=== PATIENT | female | born 1990 | race Caucasian/White ===

== ENCOUNTER → 2016-10-10 | Outpatient (REF) ==
[~2016-10-10] MED LIST: YAZ 28 3 MG-0.01 TAB PO; ZOFRAN 4MG T4 MG/TAB PO
== END ==
LOC: WSOH 16:15
DX: Z02.89 Encounter for other administrative examinations (principal)

== ENCOUNTER 2016-10-17 09:54 | Emergency (ER) | payer OTHER ==
[~2016-10-17] VITALS: Ht 152.4 cm; Wt 47.3 kg
[2016-10-17 10:00] VITALS: TEMP 98.4
[2016-10-17] MEDS ORDERED: YAZ 28 3 MG-0.01 TAB PO (10:03)
[2016-10-17 10:43] LABS: HEMATOCRIT 43.2 % (37.0-47.0); MEAN CELL VOLUME 88 fl (80.0-100.0); MEAN CORPUSCULAR HEMOGLOBIN 31 pg (27.0-31.0); MEAN CORPUSCULAR HGB CONC 35 g/dl (33.0-37.0); MEAN PLATELET VOLUME 8.9 fl (7.4-10.4); PLATELET COUNT 215 K/mm3 (130-400); RED BLOOD COUNT 4.91 M/mm3 (4.10-5.30); REDCELL DISTRIBUTION WIDTH-CV 12.1 % (11.5-14.5); WHITE BLOOD COUNT 6.7 K/mm3 (4.8-10.8)
[2016-10-17 10:46] LABS: ADD PATHOLOGY DIFF REVIEW NO
[2016-10-17 10:54] LABS: ADJUSTED CALCIUM 8.9 mg/dL (8.4-10.2); BAND 12 % (0-10); CALCIUM 8.9 mg/dL (8.4-10.2); CREATININE, serum 0.68 mg/dL (0.52-1.25); NEUTROPHILS 80 % (42.0-75.2); POTASSIUM 3.9 mmol/L (3.4-5.0); TOTAL CELLS COUNTED 100; TOTAL PROTEIN 7.4 gm/dL (6.4-8.2)
[2016-10-17 10:56] LABS: SPHEROCYTE 1+; TEAR DROP CELLS 1+
[2016-10-17] MEDS ORDERED: ZOFRAN 4MG T4 MG/TAB PO (11:24)
[2016-10-17 11:29] VITALS: BP 100/73; PULSE 91
== END 2016-10-17 11:47 | disposition home or self-care (01) ==
LOC: COL.ER 09:54
PROVIDERS: Physician Assistant Medical
DX: K52.9 Noninfective gastroenteritis and colitis, unspecified (principal)
CPT/HCPCS: J2405; J7030